=== PATIENT | male | born 1990 | race Caucasian/White ===

== ENCOUNTER 2017-11-25 20:03 | Emergency (ER) | payer SELFPAY ==
[~2017-11-25] VITALS: Ht 172.7 cm; Wt 63.1 kg
[~2017-11-25 20:03] MED LIST: INSULIN GLARGINE; INSULIN LISPRO
[2017-11-25 20:49] VITALS: Ht 172.7 cm; Wt 63.1 kg
== END 2017-11-26 01:43 | disposition left against medical advice (07) ==
LOC: FTE 20:03
DX: Z53.21 Procedure and treatment not carried out due to patient leaving prior to being seen by health care provider (principal)

== ENCOUNTER 2017-12-04 00:01 | Emergency (ER) | END 2017-12-04 08:35 | disposition home or self-care (01) ==